=== PATIENT | male | born 1970 | race Caucasian/White ===

== ENCOUNTER → 2017-01-08 | Outpatient (CLI) | payer BC ==
[~2017-01-08] MED LIST: SIMV40TA2 PO
== END | disposition home or self-care (01) ==
LOC: C.RDSM 17:13
PROVIDERS: ATTEND Physical Medicine & Rehabilitation Sports Medicine
DX: M25.561 Pain in right knee (principal)

== ENCOUNTER → 2017-04-27 | Outpatient (CLI) | payer OTHER ==
--- NOTE | 2017-04-27 19:13 | DIAGNOSTIC IMAGING REPORT ---
MRI OF THE RIGHT KNEE WITHOUT CONTRAST CLINICAL HISTORY: Medial right knee pain status post ACL reconstruction. COMPARISON STUDY: Right knee radiographs January 08, 2017. TECHNIQUE: Utilizing a 1.5 Shanon magnet and dedicated coil, multiplanar, multiecho imaging of the right knee was performed without intravenous or intraarticular contrast. FINDINGS: Alignment of the right knee is anatomic. There are findings consistent with ACL reconstruction. Graft fibers are slightly indistinct but likely intact. There is no evidence for a graft tear. The posterior cruciate ligament is intact. The medial collateral ligament and lateral collateral complex are intact. There is a small right knee joint effusion. A few joint bodies measure up to 9 mm. Extensor mechanism is intact. There is no suspicious marrow replacement. There is multifocal subchondral abnormality within the medial and lateral femoral condyles. There is high-grade chondrosis within the delamination of the cartilage of the medial femoral condyle that measures 8 mm. There is moderate to severe multifocal chondrosis within the lateral compartment as well. Note is made of moderate chondrosis of the patellofemoral compartment with osteophytosis. There is a complex tear of the ureters and posterior horn of the medial meniscus. There is a suspected free edge tear of the body of the lateral meniscus. The posterior horn of the lateral meniscus is diminutive. IMPRESSION: 1. Status post ACL reconstruction. Graft fibers slightly indistinct but likely intact. No evidence for graft tear. 2. Multifocal moderate to severe chondrosis within the three compartments, as detailed above. Findings most pronounced within the medial and lateral femoral condyles with high-grade chondrosis and subchondral signal abnormality. Associated osteophytosis. 3. Complex tear of the posterior root and posterior horn of the medial meniscus as well as free edge tear of the body of the lateral meniscus. 4. Small right knee joint effusion with multiple joint bodies. Electronically signed by: Lucas Gonzales M.D. 04/27/2017 7:12 PM Dictated Date/Time: 04/27/2017 6:37 PM
== END | disposition home or self-care (01) ==
LOC: C.MRI 16:26
PROVIDERS: ATTEND Physician Assistant
DX: M17.11 Unilateral primary osteoarthritis, right knee (principal); Z98.890 Other specified postprocedural states; S83.231A Complex tear of medial meniscus, current injury, right knee, initial encounter; S83.281A Other tear of lateral meniscus, current injury, right knee, initial encounter; X58.XXXA Exposure to other specified factors, initial encounter

== ENCOUNTER → 2017-05-20 | Day surgery (SDC) | payer OTHER ==
[2017-05-04 16:32] VITALS: Ht 175.3 cm; Wt 115.9 kg
[~2017-05-20] VITALS: Ht 175.3 cm; Wt 115.9 kg
[~2017-05-20] MED LIST changes: +ASPI325T45 PO; +ATROPINE SULFATE 0.1 MG/ML 5ML SYR IV PRN; +CEFAZOLIN 2000MG IV PUSH 15 ML IV SCH; +DEXAMETHASONE SOD INJ 4 MG/ML VIAL ONE; +EpHEDrine SULFATE INJ 50 MG/ML AMP IV PRN; +FENTANYL CITRATE INJ 50 MCG/1 ML 2 ML VIAL ONE; +HYDR-5688 PO; +HYDROmorphone INJ 1 MG/ML SYR IV PRN; +LACTATED RINGER'S 1000ML 1,000 ML IV SCH; +LIDOCAINE HCL 2% 2 ML VIAL (20MG/ML) ONE; +LIDOCAINE/EPINEPHRINE 1% 20 ML VIAL ONE; +MIDAZOLAM HCL 1 MG/ML 2ML VIAL ONE; +MoRPHine SULFATE 2 MG/ML CARP IV PRN; +MoRPHine SULFATE 4 MG/ML 1 ML CARP\\VIAL IV PRN; +ONDANSETRON INJ 2 MG/ML 2 ML VIAL IV PRN; +ONDANSETRON INJ 2 MG/ML 2 ML VIAL ONE; +OXYCODONE/ACETAMINOPHEN 5-325 TAB PO PRN; +PROMETHAZINE HCL INJ 12.5 MG in SODIUM CHLORIDE 0.9% 50ML 50 ML IV PRN; +PROPOFOL IV EMULSION 10 MG/ML 20 ML VIAL IV ONE; +SODIUM CHLORIDE 0.9% 1000ML 1,000 ML IV SCH
--- NOTE | 2017-05-20 08:33 | History & Physical Bridge Note ---
H&P Re-Evaluation Bridge Note: I have examined the patient, reviewed the History & Physical and in the interval since the performance of the History & Physical I have noted the following changes of clinical significance: No changes noted
--- NOTE | 2017-05-20 11:04 | [facility] Post Operative Brief Note ---
Immediate Operative Summary Operative Date May 20, 2017. Pre-Operative Diagnosis Right knee medial/lateral meniscus tear, loose body Post-Operative Diagnosis Right knee medial meniscus tear, Chondrosis Procedure(s) Performed Right Knee Arthroscopy Chondroplasty, Partial Medial Meniscectomy Surgeon Dr. Palacios Barrel Cleaner Surgeon(s) JERALD Christopher, Ana Ser, MS3 Estimated Blood Loss 5ml Findings Consistent with Post-Op Diagnosis Specimens none Drains None Anesthesia Type General Complication(s) none Disposition Accompanied Pt To Recovery: no Disposition: Recovery Room / PACU
--- NOTE | 2017-05-20 11:22 | [facility] Operative Report ---
Operative Report Operative Date May 20, 2017. Pre-Operative Diagnosis Right knee medial/lateral meniscus tear, loose body chondrosis Post-Operative Diagnosis Right knee medial meniscus tear, Chondrosis Procedure(s) Performed Right Knee Arthroscopy Chondroplasty, Partial Medial Meniscectomy Surgeon Dr. Palacios Tower Equipment Repairer Surgeon(s) JERALD Christopher, Ana Ser, MS3 Estimated Blood Loss 5ml Findings Medial meniscal root tear. Chondrosis of the patella, trochlea, medial and lateral femoral condyles and lateral tibial plateau, extensive scarring. Lax ACL graft. Specimens none Anesthesia Laryngeal mask with Disposition Recovery Room / PACU Implants None Indications Patient's 47-year-old gentleman who is 18 years status post ACL reconstruction partial lateral meniscectomy and cartilage surgery for an injury to his right knee. He has recently experienced increased knee pain. He has not responded well to nonoperative management including therapy and cortisone shot. MRI shows findings consistent with meniscal and chondral pathology possibly a loose body. He is taken to surgery to address these issues. Description of Procedure Informed consent was obtained. The patient was identified as Sarath Darby. The operative site was identified as the right knee. I marked it with my initials. A preop dose of IV antibiotics was given. The patient was taken to the operating room and positioned supine on the operating room table. A preoperative surgical timeout was performed. The limb was prepped and draped in the usual sterile fashion. The examination under anesthesia showed full range of motion 0 to approximately 130. He had a grade 1 pivot shift and 1+ laxity of the ACL with a soft endpoint. The knee was otherwise stable and there was no effusion. PCL and collateral laxity were intact. There is no effusion. A lateral post was used for stressing the knee. No tourniquet was applied. DVT prophylaxis with early mobility and aspirin. He was positioned supine on the operating room table. A laryngeal mask anesthetic was administered. Prior to start of the operation 1% lidocaine with epinephrine was injected into the knee joint fat pad and portal sites. Inferolateral viewing portal superior lateral outflow portal and inferomedial working portals were established. Diagnostic arthroscopy was performed. Scarring was noted throughout the knee particularly in the retropatellar fat pad area which required extensive debridement. There is grade 2 chondrosis of the median ridge of the patella over an area about 1 cm in diameter which was debrided with the shaver. The medial lateral gutters were unremarkable. The popliteal hiatus was normal. The trochlea demonstrated a large area 23 cm of grade 2 and 3 chondrosis central and inferior. There is also an area on the lateral femoral condyle within the patellofemoral articulation where there was 1 cm wide by 2 cm long of grade 3 and 4 chondrosis noted. Chondroplasty performed. Intercondylar notch showed regrowth of the notchplasty. The anterior portion of the ACL was frayed and partially torn. This was debrided. The bulk of the graft remained intact but appeared lax. PCL normal. In the medial compartment there is a macerated tear involving the posterior horn of the medial meniscus which turned out to be a medial meniscal root tear. This was debrided with the shaver and basket forceps due to its complexity. Due to the patient's age and concrement pathology I do not think that a medial meniscal root repair was and indicated. The remainder the medial meniscus was normal. There was some grade 1 changes of the medial tibial plateau. The condyle was normal with the exception of a 1 cm area of grade 3 perhaps grade 4 change medial femoral condyle tibial femoral weightbearing area. In the lateral compartment the lateral meniscus was intact with some maceration of the posterior root attachment which was debrided I did not see any loose bodies in the back of the medial or lateral sides of the knee which otherwise are unremarkable. There was a a 1-1/2 cm area at the sulcus terminalis involving the tibiofemoral articulation where there was a significant fibrocartilage formation. This was unstable and was debrided and revealed grade 3 and 4 chondrosis. Only the loose tissue was removed. There was fraying along the inner rim of the lateral meniscus. Popliteal hiatus was normal. There is no structural pathology otherwise within the lateral meniscus. There was grade 3 chondrosis at least involving the posterior central one third of the tibial plateau. There were large fissures centrally which could be probed to bone. Chondroplasty performed. The orthoscopic instruments removed from the knee. Portals were closed with 4- 0 nylon soft sterile dressing was applied. Patient was awake from anesthesia without difficulty and taken to recovery in stable condition. There were no specimens or complications. Counts were correct at the case. Blood loss was minimal. At the conclusion of the operation spoke patient's family informed of my findings and detailed postoperative instructions were given. Patient will be rehabilitated according to the arthroscopic meniscectomy/chondroplasty protocol. He may do early weightbearing as tolerated. He will begin aspirin for DVT prophylaxis the evening of surgery. I attest to the content of the Intraoperative Record and any orders documented therein. Any exceptions are noted below.
--- NOTE | 2017-05-20 11:27 | Discharge Instructions-SurgCtr ---
Discharge Instructions Date of Service May 20, 2017. Visit Reason for Visit: Right Knee Medial/Lateral Meniscus Tear, Loose Bod Discharge Discharge Diagnosis / Problem: right knee medial and lateral meniscus tear, loose body Discharge Goals Goal(s): Decrease discomfort, Improve function, Increase independence Activity Recommendations Activity Limitations: per Instructions/Follow-up section Weightbearing Status: Right weightbearing (as tolerated with the assistance of crutches) Anesthesia . Post Anesthesia Instructions: If you have had General Anesthesia or IV Sedation: * Do not drive today. * Resume driving when surgeon permits. * Do not make important decisions or sign legal documents today. * Call surgeon for: 1. Temperature elevations greater than 101 degrees F. 2. Uncontrollable pain. 3. Excessive bleeding. 4. Persistent nausea and vomiting. 5. Medication intolerance (nausea, vomiting or rash). * For nausea and vomiting use only clear liquids such as: tea, soda, bouillon until nausea subsides, then gradually increase diet as tolerated. * If you have any concerns or questions, call your surgeon's office. If physician is unavailable and it is an emergency, call 911 or go to the nearest emergency room. . Instructions / Follow-Up Instructions / Follow-Up The following are instructions to follow after your Arthroscopic Knee Surgery. ACTIVITY RECOMMENDATIONS: * Minimize activity until your first visit after surgery. * No excessive walking, jogging, sports or laboring. * Return to activity is individualized. Most patients are able to return to every day activities within one month. * Return to sports or intensive labor usually occurs at 2-3 months. * Driving is not permitted until at least your first postoperative visit at a minimum. Please ask your doctor when it is safe to resume driving. If you have an automatic vehicle and your left leg has been operated on, then you may begin driving as soon as you are comfortable and can drive safely. SCHOOL/WORK RECOMMENDATIONS: * You may return to sedentary work or school when you are feeling more comfortable. This is usually 3-7 days after surgery. * Expect increased discomfort with increased activity. Continue to elevate and ice the leg as much as possible. MEDICATIONS: * You will have a prescription for pain medication and an anti-inflammatory medication after surgery. * Use the pain medication for severe pain and the anti-inflammatory for less severe pain. Once the pain medication has run out, try to use the anti-inflammatory medication. If this is not effective, contact the office for assistance. * The pain medication may cause nausea, constipation and drowsiness. You should see how they affect you before driving or similar activity. * Take aspirin 325 mg twice daily with food 21 days after surgery. He may start this evening of surgery if tolerating food. * Take a stool softener like Colace or a laxative like Senokot to prevent constipation. DIET: * Resume previous diet. SPECIAL CARE: ICE: You have the option of an ice cooler, gel packs or ice bags. * If you have an ice cooler, refer to the instructions for that device. The ice cooler may be used continuously. * If you do not have an ice cooler, you will need to use ice bags or gel packs. Do not apply ice directly to the skin. Use a thin dressing or demi shirt between the skin and ice bag. Apply ice for 20-30 minutes and repeat every 2-4 hours. This is especially important for the first 7-10 days after surgery. Once the pain improves, use ice as needed. ELEVATION: * Keep your leg elevated at or above the level of your heart as much as possible. * Expect some increased discomfort and swelling if you are standing for any length of time. * When lying down, avoid placing anything under your knee. Rather, prop your leg up by placing several pillows under your heel or calf. DRESSING: * Your dressing will be changed at your first therapy appointment approximately 4-5 days after surgery. Band-aids, tape strips or gauze may be applied. You may then change your dressing daily. * Reapply dressing followed by the Jacob wrap or Tubi-special education director stockinet and EBIce cooling pad (if chosen). * Always wash your hands prior to touching the incision area. * Once the stitches are removed, you may leave the wound open to air or cover with an Jacob wrap or Tubi-special education director stockinet. * If you have been given a white elastic stocking (AVIVA hose), wear as much as possible for the first 1-3 weeks depending on swelling. * Expect some bloody drainage for the first few days after surgery. * Leave the tape strips, if present, in place for 5-7 days. * Band-aids and gauze may be changed daily. CRUTCHES: * You will need to use crutches after surgery. * You may gradually progress to full weight bearing as tolerated and wean off the crutches unless otherwise advised. * Your therapist can provide assistance weaning off crutches. * Patients who have a microfracture done may need to be toe-touch weight- bearing for 4-6 weeks. BATHING: * You may shower or sponge-bathe immediately after surgery. * The dressing will need to be covered with a plastic bag or plastic wrap until the dressing is changed on the fourth or fifth day after surgery. * Once the dressing has been changed on the fourth or fifth day after surgery, you may shower and get the incision wet. * Wash with regular soap and water. * Do not bathe (submerge the incision), soak, swim or use a hot tub until the incision is completely healed over with normal skin and the doctor has given the OK to proceed. * There is no need to apply any ointments, powders or salves to your incision. * Do not apply alcohol or hydrogen peroxide directly to the incision. * Diluted peroxide (50:50 mixture with sterile saline) may be used to clean dried blood from around the incision area. BRACE: * Bracing is generally not needed after routine Arthroscopic Knee surgery. THERAPY: * You will begin therapy four or five days after surgery. * Organized therapy with the therapist is important for the first 4-6 weeks after surgery. During that time you will attend therapy 1-3 times per week. * You will also need to do daily exercises for range of motion and strength as instructed. PROBLEMS/QUESTIONS: * If you have any problems such as severe pain, numbness, tingling or high fevers or if you have any questions, please contact the office at [phone]. * It is not uncommon to have some numbness and tingling after the surgery especially if you have had a nerve block done. This should gradually improve over the first 1- 2 days. If this persists longer or worsens please contact the office. FOLLOW UP VISIT: * If not already scheduled, please call the office at to schedule a follow-up appointment for 10 days, 6 weeks and 3 months after surgery. * You have a physical therapy appointment on 05/24/2017 at 10:30 AM * You have a follow-up appointment scheduled with Dr. Palacios on 06/02/2017 at 1:00 PM Diet Recommendations Home Diet: no limitations, resume previous diet Procedures Procedures Performed: Right Knee Arthroscopy Chondroplasty, Partial Medial Meniscectomy Pending Studies Studies pending at discharge: no Medical Emergencies . Who to Call and When: Medical Emergencies: If at any time you feel your situation is an emergency, please call 911 immediately. . Non-Emergent Contact Non-Emergency issues call your: Surgeon Call Non-Emergent contact if: temperature is above 101, your pain is not controlled, your pain is worsening, your pain is unusual for you, your pain is concerning you, wound has increased drainage, wound has increased redness, wound has increased pain, you have any medication questions . . "Provider Documentation" section prepared by Roxanne Spencer. . [place] Drug Monitoring Program Search Results: patient reviewed within database, no issues identified
--- NOTE | 2017-05-20 11:30 | [facility] Operative Report ---
Operative Report Operative Date May 20, 2017. Pre-Operative Diagnosis Right knee medial/lateral meniscus tear, loose body chondrosis Post-Operative Diagnosis Right knee medial meniscus tear, Chondrosis Procedure(s) Performed Right Knee Arthroscopy Chondroplasty, Partial Medial Meniscectomy Surgeon Dr. Palacios Integrity Consultant Surgeon(s) JERALD Christopher, Ana Ser, MS3 Estimated Blood Loss 5ml Specimens none Drains None Anesthesia Type General Complication(s) none Disposition no Recovery Room / PACU Indications Patient is a 46-year-old male presented to our office for complaints of right knee pain. It has progressively worsened. X-rays of his right knee show some mild degenerative joint change and evidence of previous anterior cruciate ligament reconstruction. MRI of his right knee was obtained and found to have a medial and lateral meniscus tear and possible loose body of his right knee. He is failed conservative treatment. Surgical intervention was discussed and he wished to proceed with surgery. Risks and complications of surgery were explained to the patient. Informed consent was obtained. Description of Procedure Patient was taken to the operating room and placed under general anesthesia. He was given 2 g of IV Ancef for surgical prophylaxis. Timeout was performed. He was prepped and draped in routine sterile fashion. I was present during the entire case, please see Dr. Palacios's operative report for further detail. Patient was awakened and transferred to the recovery room in stable condition. I attest to the content of the Intraoperative Record and any orders documented therein. Any exceptions are noted below.
--- NOTE | 2017-05-20 11:30 | Medical Student: [facility] ---
Immediate Operative Summary Operative Date May 20, 2017. Pre-Operative Diagnosis Right medial and lateral meniscal root tear, chondrosis with loose bodies Post-Operative Diagnosis Right medial meniscal root tear, chondrosis Procedure(s) Performed Arthroscopy of the right knee with partial medial meniscectomy and chondroplasty Surgeon Dr. Palacios Transmission Rebuilder Surgeon(s) Roxanne Spencer PA-C and Ana Gallegos, MS3 Estimated Blood Loss 5cc Findings Right medial meniscal root tear Right lateral meniscal tear at the posterior horn ACL graft - appeared frayed and partially torn with some laxity Grade 3 articular cartilage damage of the trochlea and lateral femoral condyle Specimens No specimens obtained Drains None Anesthesia General Complication(s) None Disposition Recovery Room / PACU
[2017-05-20] MEDS: FENTANYL CITRATE INJ 50 MCG/1 ML 2 ML VIAL IV PRN ×2 (11:45→11:53)
[2017-05-20 12:22] VITALS: TEMP 36.5
[2017-05-20 12:59] VITALS: BP 127/78; PULSE 83; O2SAT 95
--- NOTE | 2017-05-20 13:06 | Anesthesia Progress Nt - [facility] ---
Anesthesia Post Op Note Date & Time May 20, 2017 at 13:05 Vital Signs Pain Intensity: 2.0 Vital Signs Past 12 Hours Date Time Temp Pulse Resp B/P (MAP) Pulse Ox O2 Delivery O2 Flow Rate FiO2 05/20/17 12:59 83 18 127/78 (94) 95 Room Air 05/20/17 12:22 36.5 79 20 142/89 (106) 94 Room Air 05/20/17 12:18 36.3 71 16 132/83 95 Room Air 05/20/17 12:12 67 17 100 05/20/17 12:12 66 17 05/20/17 12:11 126/84 05/20/17 12:07 83 16 05/20/17 12:07 81 16 94 05/20/17 12:06 145/91 05/20/17 12:02 76 18 97 05/20/17 12:02 77 18 05/20/17 12:01 122/75 05/20/17 11:57 74 7 98 05/20/17 11:57 72 7 05/20/17 11:56 119/82 05/20/17 11:52 73 20 05/20/17 11:52 73 20 97 05/20/17 11:51 125/88 05/20/17 11:47 67 7 100 05/20/17 11:47 67 7 05/20/17 11:46 138/84 05/20/17 11:42 73 17 05/20/17 11:42 73 17 133/83 100 05/20/17 11:37 70 13 100 05/20/17 11:37 70 13 05/20/17 11:36 123/82 05/20/17 11:32 72 6 100 05/20/17 11:32 72 6 05/20/17 11:31 126/75 05/20/17 11:27 70 16 98 05/20/17 11:27 71 16 05/20/17 11:26 126/77 05/20/17 11:23 36.2 75 16 137/92 99 Mask 5 05/20/17 11:22 71 13 05/20/17 11:22 72 13 97 05/20/17 11:21 137/92 05/20/17 08:21 36.4 71 18 154/116 (129) 95 Room Air Notes Mental Status: alert / awake / arousable, participated in evaluation Pt Amnestic to Procedure: Yes Nausea / Vomiting: adequately controlled Pain: adequately controlled Airway Patency, RR, SpO2: stable & adequate BP & HR: stable & adequate Hydration State: stable & adequate Anesthetic Complications: no major complications apparent
== END | disposition home or self-care (01) ==
LOC: X.SURG 08:12
PROVIDERS: ATTEND Physical Medicine & Rehabilitation Sports Medicine
DX: M23.221 Derangement of posterior horn of medial meniscus due to old tear or injury, right knee (principal); G47.33 Obstructive sleep apnea (adult) (pediatric); E78.5 Hyperlipidemia, unspecified; E66.9 Obesity, unspecified

== ENCOUNTER → 2017-06-21 | Outpatient (CLI) | payer OTHER ==
[~2017-06-21] MED LIST changes: -ATROPINE SULFATE 0.1 MG/ML 5ML SYR IV PRN; -CEFAZOLIN 2000MG IV PUSH 15 ML IV SCH; -DEXAMETHASONE SOD INJ 4 MG/ML VIAL ONE; -EpHEDrine SULFATE INJ 50 MG/ML AMP IV PRN; -FENTANYL CITRATE INJ 50 MCG/1 ML 2 ML VIAL ONE; -HYDROmorphone INJ 1 MG/ML SYR IV PRN; -LACTATED RINGER'S 1000ML 1,000 ML IV SCH; -LIDOCAINE HCL 2% 2 ML VIAL (20MG/ML) ONE; -LIDOCAINE/EPINEPHRINE 1% 20 ML VIAL ONE; -MIDAZOLAM HCL 1 MG/ML 2ML VIAL ONE; -MoRPHine SULFATE 2 MG/ML CARP IV PRN; -MoRPHine SULFATE 4 MG/ML 1 ML CARP\\VIAL IV PRN; -ONDANSETRON INJ 2 MG/ML 2 ML VIAL IV PRN; -ONDANSETRON INJ 2 MG/ML 2 ML VIAL ONE; -OXYCODONE/ACETAMINOPHEN 5-325 TAB PO PRN; -PROMETHAZINE HCL INJ 12.5 MG in SODIUM CHLORIDE 0.9% 50ML 50 ML IV PRN; -PROPOFOL IV EMULSION 10 MG/ML 20 ML VIAL IV ONE; -SODIUM CHLORIDE 0.9% 1000ML 1,000 ML IV SCH
--- NOTE | 2017-06-21 10:46 | DIAGNOSTIC IMAGING REPORT ---
SOFT TISS HEAD/NECK-THYROID HISTORY: Thyroid nodule E04.1 Thyroid [id number] COMPARISON: 05/22/2015 FINDINGS: Right lobe: Maximum linear dimension 4.7 cm. Complex midpole nodule measuring 1.0 x 0.6 cm. It is slightly diminished in the prior study. Left lobe: Maximum linear dimension 3.9 cm. Several small sub-3 mm cyst. Isthmus: No nodules. IMPRESSION: 1. Improved exam. 2. Complex nodule mid pole right thyroid lobe is mildly diminished in size. 3. No new or interval/progressive findings. The above report was generated using voice recognition software. It may contain grammatical, syntax or spelling errors. Electronically signed by: Bakari Jorge M.D. 06/21/2017 10:45 AM Dictated Date/Time: 06/21/2017 10:44 AM
== END | disposition home or self-care (01) ==
LOC: C.ULTR 09:56
PROVIDERS: ATTEND Physician Assistant Medical
DX: E04.1 Nontoxic single thyroid nodule (principal)